=== PATIENT | male | born 1960 | race African-American/Black ===

== ENCOUNTER 2017-02-14 15:15 | Emergency (ER) | payer BC, OTHER ==
[~2017-02-14] VITALS: Ht 182.9 cm; Wt 64.5 kg
[~2017-02-14 15:15] MED LIST: FLEXERIL10 MG PO; INDOCIN50 MG PO; MOTRIN600 MG PO; NORCO 5/3251 TABLET PO; TRAMADOL HCL50 MG PO; TRAZODONE HCL50 MG PO; ZOFRAN4 MG PO
[2017-02-14 16:05] LABS: BASOPHIL COUNT 0.1 K/uL (0-0.1); EOSINOPHIL COUNT 0.1 K/uL (0-0.3); HEMATOCRIT 35.8 % (38.0-50.0); IMMATURE GRANULOCYTE (%) 0.4 % (0.0-0.7); INSTRUMENT ABS NEUTROPHIL CT 5.4 K/uL; LYMPHOCYTE COUNT 1.2 K/uL (1.0-2.8); MCH 27.8 PG (29.0-34.0); MCHC 32.1 G/DL (30.0-36.0); MCV 86.5 FL (86-99); MEAN PLAT.VOLUME 8.1 uM^3 (9.0-12.4); MONOCYTE (%) 3.8 % (3-12); MONOCYTE COUNT 0.3 K/uL (0-0.8); NEUTROPHIL (%) 77.1 % (45-76); NEUTROPHIL COUNT 5.4 K/uL (1.8-6.4); PLATELET COUNT 345 K/uL (156-360); RBC DIS.WIDTH-CV 14.7 % (11.8-14.6); RBC DIS.WIDTH-SD 46.9 % (39-53); RED BLOOD COUNT 4.14 M/uL (4.00-5.50)
[2017-02-14 16:16] LABS: CHLORIDE 103 mEq/L (99-109); POTASSIUM 3.8 mEq/L (3.7-5.4); SODIUM 140 mEq/L (136-147)
[2017-02-14 16:18] LABS: GLUCOSE 111 mg/dL (70-99)
[2017-02-14 16:20] LABS: ANION GAP 12 MEQ/L (2-14)
[2017-02-14 16:21] LABS: SERUM ETHYL ALCOHOL < 10 mg/dL
[2017-02-14 16:22] LABS: GFR ESTIMATE (CALCULATED) > 59 mL/min/
[2017-02-14 16:23] LABS: UREA NITROGEN (BUN) 11 mg/dL (9-23)
[2017-02-14 17:42] VITALS: BP 150/74
== END 2017-02-14 17:49 | disposition home or self-care (01) ==
LOC: EME 15:15
PROVIDERS: Emergency Medicine
DX: F11.20 Opioid dependence, uncomplicated (principal); F32.9 Major depressive disorder, single episode, unspecified; G89.29 Other chronic pain; F17.200 Nicotine dependence, unspecified, uncomplicated
CPT/HCPCS: 80048; 81003; 85025; 90839; 99281; 99284; G0480